=== PATIENT | female | born 1980 | race Two or more races ===

== ENCOUNTER 2024-08-03 06:32 | Emergency (ER) | payer MEDICAID, SELFPAY ==
[2024-08-03 06:32] VITALS: BMI 31.7
[2024-08-03 06:40] VITALS: BP 120/78; PULSE 75; RESP 19; TEMP 36.9; O2SAT 95
--- NOTE | 2024-08-03 06:46 | XR_ITS ---
Examination: PA lateral chest 2 views TECHNIQUE: Upright PA lateral chest 2 views Exam date and time: August 03, 2024 0711 hours Comparison June 21, 2023 INDICATIONS: Coughing wheezing beginning 3 days ago. FINDINGS: Mild hyperexpansion Normal heart size No lobar pneumonia or pulmonary edema Intact osseous structures IMPRESSION: No lobar pneumonia identified
[2024-08-03 06:57] VITALS: PULSE 69
[2024-08-03] MEDS: IPRATROPIUM RT 0.5 MG/ 2.5 ML NEBU 1 MG INH (06:57)
[2024-08-03] MEDS: ALBUTEROL RT 2.5 MG/0.5 ML NEBU 5 MG INH (06:57)
[2024-08-03 06:58] VITALS: PULSE 72; RESP 20; O2SAT 100
[2024-08-03] MEDS: predniSONE 20 MG TABLET 40 MG PO (07:23)
[2024-08-03 08:14] VITALS: PULSE 71; RESP 20; O2SAT 0
--- NOTE | 2024-08-03 08:40 | PD.EDURI ---
Upper Respiratory Inf. RME/HPI General Chief Complaint: Flu Like Symptoms Stated Complaint: COUGH/ SOB X 3DAYS Time Seen by Provider: 08/03/24 06:33 Arrival date/time: 08/03/24 06:32 44-year-old female history of asthma presents to the emergency department complains of cough, congestion, shortness of breath patient for symptoms ongoing for last 2 to 3 days patient reports no chest pain or fever there are no other associated symptoms or aggravating factors no other modifying factors, patient denies taking medication before coming to ER today Limitations: no limitations Related Data Home Medications ?Medication ?Instructions ?Recorded ?Confirmed albuterol sulfate 90 mcg/actuation 2 puff inhalation Q6H PRN 07/17/18 09/09/23 aerosol inhaler (Ventolin HFA) Shortness Of Breath Previous Rx's ?Medication ?Instructions ?Recorded albuterol sulfate 2.5 mg/3 mL 2.5 mg (3 mL) inhalation Q4H PRN 08/08/19 (0.083 %) solution for nebulization wheeze #90 mL albuterol sulfate 90 mcg/actuation 2 puff inhalation QID PRN 12/16/22 aerosol inhaler (Ventolin HFA) shortness of breath or wheezing #8.5 grams albuterol sulfate 1.25 mg/3 mL 1.25 mg (3 mL) inhalation QID PRN 06/21/23 solution for nebulization shortness of breath or wheezing #90 mL pantoprazole 40 mg tablet,delayed 40 mg PO QDAY #30 tabs 11/08/23 release (Protonix) albuterol sulfate 90 mcg/actuation 2 puff inhalation Q6H PRN 08/03/24 aerosol inhaler (Ventolin HFA) shortness of breath or wheezing #8.5 grams benzonatate 100 mg capsule 100 mg PO TID #14 caps 08/03/24 prednisone 10 mg tablet 30 mg (3 x 10 mg) PO BID 3 days 08/03/24 #18 tabs Allergies Allergy/AdvReac Type Severity Reaction Status Date / Time dexamethasone Allergy Anxiety Verified 08/03/24 07:18 Review of Systems Review of Systems Systems Reviewed: All systems reviewed, normal except as documented Constitutional Constitutional: Reports system reviewed and no additional complaints, except as documented, Denies fever(s) and Denies headache(s) Eyes Eyes: Reports system reviewed and no additional complaints, except as documented and Denies blurry vision ENT Ears, Nose, Mouth, and Throat: Reports system reviewed and no additional complaints, except as documented, Denies headache(s), Denies nasal congestion and Denies nasal discharge Cardiovascular Cardiovascular: Reports system reviewed and no additional complaints, except as documented, Denies chest pain and Denies dyspnea Respiratory Respiratory: Reports system reviewed and no additional complaints, except as documented, Reports chest congestion, Reports cough, Denies dyspnea and Reports wheezing Gastrointestinal Gastrointestinal: Reports system reviewed and no additional complaints, except as documented and Denies abdominal pain Integumentary/Breasts Skin/Breast: Reports system reviewed and no additional complaints, except as documented and Denies rash Neurologic Neurologic: Reports system reviewed and no additional complaints, except as documented, Reports as per HPI and Denies headache(s) Allergic/Immunologic Allergic/Immunologic: Reports wheezing Past Medical History Past Medical History NEUROLOGIC: Negative Neurological Disorders CARDIAC: Negative Cardiac Disorders ED Exam General Limitations: Present no limitations General appearance: Present alert and in no apparent distress Head Head exam: Present atraumatic, normocephalic and normal inspection Eye Eye exam: Present normal appearance, PERRL and EOMI; Absent conjunctival injection ENT ENT exam: Present normal exam, normal oropharynx and mucous membranes moist Neck Neck exam: Present normal inspection, full ROM and trachea midline Chest Chest inspection: Present normal inspection and symmetric chest wall rise; Absent tenderness Respiratory Respiratory exam: Present wheezes and accessory muscle use; Absent stridor Cardiovascular Cardiovascular exam: Present regular rate, normal rhythm and normal heart sounds Abdominal Exam Abdominal exam: Present soft and normal bowel sounds Extremities Exam Extremities exam: Present normal inspection and full ROM Back Exam Back exam: Present normal inspection and full ROM Neurological Exam Neurological exam: Present alert, oriented X3 and CN II-XII intact Psychiatric Psychiatric exam: Present normal affect and normal mood Skin Skin exam: Present warm, dry, intact and normal color Course Quality Measures none Orders Category Date Time Status Bedside COVID-19 Antigen Test NOW Care 08/03/24 06:46 Completed Bedside Influenza A&B Antigen Test NOW Care 08/03/24 06:46 Completed XR chest 2V Stat Exams 08/03/24 06:46 Completed ALBUTEROL RT 0.5ml [Proventil Rt 0.5ml] Med 08/03/24 07:57 Discontinued 2.5 mg INH X1 ONE ALBUTEROL RT 0.5ml [Proventil Rt 0.5ml] Med 08/03/24 06:46 Discontinued 5 mg INH X1 ONE Dexamethasone Inj [Decadron Inj] Med 08/03/24 06:46 Discontinued 10 mg PO X1 ONE Ipratropium [place] Rt Deanne [Atrovent Rt Deanne] Med 08/03/24 06:46 Discontinued 1 mg INH X1 ONE Sodium Chloride Rt Deanne 0.9% [NS Rt Deanne 0.9%] Med 08/03/24 06:46 Discontinued 3 ml INH PRN PRN Sodium Chloride Rt Deanne 0.9% [NS Rt Deanne 0.9%] Med 08/03/24 07:57 Discontinued 3 ml INH PRN PRN predniSONE Med 08/03/24 07:19 Discontinued 40 mg PO X1 ONE Vital Signs Vital signs: Vital Signs Temperature 98.5 F 08/03/24 06:40 Pulse Rate 75 08/03/24 06:40 Respiratory Rate 19 08/03/24 06:40 Blood Pressure 120/78 08/03/24 06:40 Pulse Oximetry (%) 95 08/03/24 06:40 Oxygen Delivery Method Room Air 08/03/24 06:40 O2 saturation 95% room air within normal limits Upper Respiratory Infection MDM Narrative MDM Narrative:: 44-year-old female history of asthma presents to the emergency department complains of cough, congestion, shortness of breath patient for symptoms ongoing for last 2 to 3 days patient reports no chest pain or fever there are no other associated symptoms or aggravating factors no other modifying factors, patient denies taking medication before coming to ER today On exam patient does not appear ill or toxic in no acute distress On exam patient does have diffuse wheezing bilaterally Patient given breathing treatment x 2 as well as steroids Time reevaluation patient's lungs are clear to auscultation Chest x-ray obtained no acute remarkable infiltrates noted Patient checked for flu and COVID both of which are negative Patient discharged home in no distress to follow-up with primary care doctor in the next 24 to 48 hours and for any worsening symptoms to return to the ER immediately Patient data External records reviewed:: [facility] previous records Clinical information provided by:: patient Social determinants that could affect healthcare access:: none Patient has the following chronic illnesses:: See history How is presenting disease/condition affected by chronic disease/condition?: caused by Evaluation data The following diagnostics were reviewed and interpreted by me:: lab results and radiology exam(s) Lab and/or radiology exams considered but not ordered:: Labs radiology obtained Interpretation Summary: Reviewed by me Medications / Prescriptions Medications or Prescriptions considered but not ordered:: Given Medication administrations:: Medication Administration History Discontinued Medications Albuterol (Albuterol Rt 2.5 Mg/0.5 Ml Nebu) 5 mg INH X1 ONE Stop: 08/03/24 06:47 Last Admin: 08/03/24 06:57 Dose: 5 mg Documented By: JOSH Albuterol (Albuterol Rt 2.5 Mg/0.5 Ml Nebu) 2.5 mg INH X1 ONE Stop: 08/03/24 07:58 Dexamethasone Sodium Phosphate (Dexamethasone Sod Phos Inj 10 Mg/Ml Vial) 10 mg PO X1 ONE Stop: 08/03/24 06:47 Last Admin: 08/03/24 07:19 Dose: Not Given Documented By: JERALD Non-Admin Reason: Allergy Comments: NO GIVEN Ipratropium [place] (Ipratropium Rt 0.5 Mg/ 2.5 Ml Nebu) 1 mg INH X1 ONE Stop: 08/03/24 06:47 Last Admin: 08/03/24 06:57 Dose: 1 mg Documented By: JOSH Prednisone (Prednisone 20 Mg Tablet) 40 mg PO X1 ONE Stop: 08/03/24 07:20 Last Admin: 08/03/24 07:23 Dose: 40 mg Documented By: JERALD Sodium Chloride (Sodium Chloride Rt Deanne 0.9% 3 Ml Nebu) 3 ml INH PRN PRN PRN Reason: SOLN Stop: 09/02/24 06:45 Sodium Chloride (Sodium Chloride Rt Deanne 0.9% 3 Ml Nebu) 3 ml INH PRN PRN PRN Reason: SOLN Stop: 09/02/24 07:56 Given Consultations Consultation(s) initiated? (list below): No Diagnosis Upper Respiratory Differential Diagnosis: upper respiratory infection, viral infection, bronchitis and influenza Most likely diagnosis given after review of the tests above:: Asthma exacerbation Admission Indicated Admission indicated?: not indicated Admission Request Was there a request for admission?: No Disposition Plan Disposition Plan: Discharge Discharge Attestation Discharge Attestation: The patient and all family members were given an opportunity to ask questions and understood the discharge instructions. Discharge instructions specifically effects, indications for sooner follow up or return to the emergency department, and the expected course of current diagnosis. Patient condition: Stable Discharge Plan Plan Patient Disposition: HOME (Self Care) Disposition Comment: Stable Prescriptions/Referrals Prescriptions/Med Rec: New prednisone 10 mg tablet 30 mg PO BID 3 Days Qty: 18 0RF benzonatate 100 mg capsule 100 mg PO TID Qty: 14 0RF albuterol sulfate [Ventolin HFA] 90 mcg/actuation HFA aerosol inhaler 2 puff inhalation Q6H PRN (Reason: shortness of breath or wheezing) Qty: 8.5 0RF No Action albuterol sulfate [Ventolin HFA] 90 mcg/actuation Hfa Aerosol Inhaler 2 puff INHALATION Q6H PRN (Reason: Shortness Of Breath) albuterol sulfate 2.5 mg /3 mL (0.083 %) solution for nebulization 2.5 mg INH Q4H PRN (Reason: wheeze) Qty: 90 0RF albuterol sulfate 1.25 mg/3 mL solution for nebulization 1.25 mg inhalation QID PRN (Reason: shortness of breath or wheezing) Qty: 90 0RF pantoprazole [Protonix] 40 mg tablet,delayed release (DR/EC) 40 mg PO QDAY Qty: 30 0RF albuterol sulfate [Ventolin HFA] 90 mcg/actuation HFA aerosol inhaler 2 puff inhalation QID PRN (Reason: shortness of breath or wheezing) Qty: 8.5 0RF Referrals: Gilbert Bermudez MD [Primary Care Provider] - In 1 week Problem List Clinical Impression: Exacerbation of asthma, Cough Patient/Caregiver Discharge Instructions Education Materials: Asthma Additional Instructions: Please follow up with your primary care doctor in the next 24-48hrs for any worsening symptoms return here immediately Print Language: Mongolian Stand Alone Forms: Clare Award Info., Work/School Release, Patient Portal Info Letter PA/HUMAN RESOURCES ANALYST Supervising Physician PA/WESLEY Supervising Physician: Dr. Barlow
== END 2024-08-03 08:45 | disposition home or self-care (01) ==
PROVIDERS: Emergency Provider Emergency Medicine; PCP Family Medicine
DX: J45.901 Unspecified asthma with (acute) exacerbation (principal)
CPT/HCPCS: 71046; 87400; 87811; 94640; 99284; J7512